=== PATIENT | male | born 1975 ===

== ENCOUNTER → 2017-05-07 | Day surgery (SDC) | payer BC ==
[2017-05-02 10:53] VITALS: BMI 31.7
[~2017-05-07] MED LIST: LACTATED RINGERS 1,000 ML IV SCH; LIDOCAINE 1% 20 ML VIAL (10MG/ML) FOR IV START INTRADERMA PRN; LIDOCAINE 1% INJ 10MG/ML (20 ML MDV) ONE; PROPOFOL 10 MG/ML 20 ML VIAL IV ONE
[2017-05-07 11:22] VITALS: RESP 16; TEMP 97.9
--- NOTE | 2017-05-07 12:35 | P.PCN ---
Date of Procedure: 05/07/17 Preoperative Diagnosis: Postoperative Diagnosis: Procedure(s) Performed: Procedure: Total colonoscopy. Preoperative diagnosis: Rectal bleeding. Postoperative diagnosis: Low-grade internal hemorrhoids without bleeding at the time of this exam. Preparation: HalfLytely prep. Sedation: Was provided by anesthesia. Brief clinical history: The patient is a 41-year-old male who I have evaluated in the office recently regarding rectal bleeding and change in bowel habits in the form of increase in the number of bowel movements. There is no family history of colon cancer. This would be his first colonoscopy. Procedure: With the patient on his left lateral decubitus position and after informed consent and adequate sedation, the perianal area was inspected and it did not show any fissures or fistulas. There were no masses felt on digital rectal examination. The Olympus CFQ 160L video colonoscope was then inserted in the rectum in the usual fashion and advanced to the cecum. The preparation was less than ideal, as there was retained fecal material and fecal debris which I was able to partially wash off or marbleized. The mucosa appeared healthy. No polyps or tumors were seen or any obvious diverticular disease. In the retroflex view in the rectum, low-grade internal hemorrhoids were noted but there was no evidence of bleeding. The patient tolerated the procedure well. Plan: The patient was reassured. Discussed dietary measures and local care for hemorrhoids. Further plans can be made based on his course. He will call if his symptoms persist or change. I will keep you updated on his progress. For colon cancer screening, I recommended a colonoscopy at age 51 Implants: Indications for Procedure: Operative Findings: Description of Procedure:
[2017-05-07 12:58] VITALS: BP 130/88; PULSE 84
== END ==
LOC: ORWHC2ENDO 10:32
DX: K64.8 Other hemorrhoids (principal); K62.5 Hemorrhage of anus and rectum; R19.4 Change in bowel habit; E78.5 Hyperlipidemia, unspecified; Z79.1 Long term (current) use of non-steroidal anti-inflammatories (NSAID); Z79.899 Other long term (current) drug therapy; Z88.1 Allergy status to other antibiotic agents
CPT/HCPCS: 45378; J2001; J2704

== ENCOUNTER → 2020-07-13 | Outpatient (CLI) | payer BC | END | disposition home or self-care (01) | LOC: LABWHC1 14:52 | PROVIDERS: ATTEND Family Medicine | DX: Z20.828 Contact with and (suspected) exposure to other viral communicable diseases (principal) | CPT/HCPCS: U0003; C9803 ==

== ENCOUNTER 2024-04-29 07:02 | Day surgery (SDC) | payer BC, OTHER ==
[2024-04-29 07:35] VITALS: TEMP 97.7
[2024-04-29] MEDS: LIDOCAINE 1% (10MG/ML) FOR IV START INTRADERMA PRN (07:44)
[2024-04-29] MEDS: IV FLUID CONTINUATION 1,000 ML IV ONE (07:44)
[2024-04-29] MEDS: LACTATED RINGERS 1,000 ML IV SCH (07:44)
[2024-04-29] MEDS ORDERED: PROPOFOL 10 MG/ML 20 ML VIAL IV ONE (07:50)
[2024-04-29] MEDS ORDERED: LIDOCAINE 2% (PF) 20 MG/ML 5 ML VIAL ONE (07:50)
--- NOTE | 2024-04-29 08:08 | P.PCN ---
Date of Procedure: 04/29/24 Procedure(s) Performed: Brief history: Patient is a pleasant 48-year-old male scheduled for an elective upper endoscopy as well as colonoscopy as a part of evaluation of iron deficiency anemia and lungs and history of GERD Procedure performed: Esophagogastroduodenoscopy with biopsy Colonoscopy with snare polypectomy Preoperative diagnosis: Anesthesia: MAC Procedure: After informed consent was obtained from the patient was brought into the endoscopy unit and IV sedation was administered by anesthesia under continuous monitoring. Initially upper endoscopy was done. The Olympus GF 160 video endoscope was inserted inserted into the mouth and esophagus intubated without any difficulty and was gradually advanced into the stomach and duodenum and carefully examined. The bulb and second part of the duodenum appeared normal. Biopsies were done from the duodenum to evaluate for celiac disease. The scope was then withdrawn into the stomach adequately insufflated with air and upon careful examination the antrum and body, cardia and fundus appeared normal. The scope was then withdrawn into the esophagus. The GE junction was located at 40 cm to the incisors. It appeared regular with no erythema erosions or ulcerations. Rest of the esophagus appeared normal. Patient tolerated the proc edure well. At this time the patient continued to remain sedation. Initial digital rectal examination was normal. Olympus CF 160 video colonoscope was then inserted into the rectum and gradually advanced to the cecum without any difficulty. Careful examination was performed as the scope was gradually being withdrawn. The prep was excellent. The cecum, ascending colon, transverse colon appeared normal. In the descending colon there was a 5 mm polyp that was removed by cold snare polypectomy. Rest of the, descending colon, sigmoid colon and rectum appeared normal. Retroflexion was performed in the rectum and grade 2 internal hemorrhoids were noted. Patient tolerated the procedure well. Impression: 1. Upper endoscopy revealed mild antral gastritis but no evidence of esophagitis or peptic ulcer disease 2. Colonoscopy revealed 5 mm descending colon polyp status post cold snare polypectomy and greater than hemorrhoids Recommendations: Findings of this examination were discussed with the patient as well as his family. He was advised to follow-up with the biopsy results. If the biopsy reveals adenoma, recommended repeat colonoscopy in 5 years. Continue with iron supplements daily.
[2024-04-29 08:30] VITALS: BP 108/76; PULSE 68; RESP 16
== END 2024-04-29 08:55 | disposition home or self-care (01) ==
LOC: ORWHC2ENDO 07:02
PROVIDERS: ATTEND Internal Medicine Gastroenterology
DX: D72.820 Lymphocytosis (symptomatic) (principal); D12.4 Benign neoplasm of descending colon; K29.50 Unspecified chronic gastritis without bleeding; D50.9 Iron deficiency anemia, unspecified; I10 Essential (primary) hypertension; E78.5 Hyperlipidemia, unspecified; Z88.1 Allergy status to other antibiotic agents; Z79.899 Other long term (current) drug therapy
CPT/HCPCS: 43239; 45385; 88305; 88341; 88342

== ENCOUNTER → 2024-05-18 | Outpatient (CLI) | payer OTHER ==
[2024-05-18 18:01] LABS: Anisocytosis Slight; Basophils % (A) 0 %; Eosinophils # (A) 0.2 k/uL (0-0.7); Eosinophils % (A) 3 %; HCT 36.8 % (39.0-53.0); HGB 12.1 gm/dL (13.0-17.5); Lymphocytes # (A) 1.2 k/uL (1.0-4.8); Lymphocytes % (A) 23 %; MCH 27.3 pg (25.0-35.0); MCHC 32.9 g/dL (31.0-37.0); MCV 82.8 fL (80.0-100.0); Mean Platelet Volume 7.3; Microcytosis Slight; Monocytes # (A) 0.3 k/uL (0-1.0); Monocytes % (A) 6 %; Neutrophils # (A) 3.6 k/uL (1.3-7.7); Neutrophils % (A) 66 %; Platelet Count 368 k/uL (150-450); RBC 4.44 m/uL (4.30-5.90); RDW 18.5 % (11.5-15.5); WBC 5.5 k/uL (3.8-10.6)
[2024-05-19 02:24] LABS: % Iron Saturation 5.47 (15.00-50.00); Ferritin 17.9 ng/mL (22.0-322.0)
[2024-05-19 04:58] LABS: Gliadin AB IgG, Deaminated Negative (Negative); Gliadin AB IgG, Unit <0.4 U/mL
== END | disposition home or self-care (01) ==
LOC: LABMAIN 17:31
PROVIDERS: ATTEND Family Medicine
DX: D50.9 Iron deficiency anemia, unspecified (principal)
CPT/HCPCS: 82728; 83516; 83540; 83550; 85025